=== PATIENT | male | born 1955 | race Caucasian/White ===

== ENCOUNTER 2022-03-26 01:22 | Outpatient (CLI) | payer MEDICARE, BC, SELFPAY ==
--- NOTE | 2022-03-26 09:30 | DI.DEXA_ITS ---
Exam(s) XR DEXA BONE DENSITY W/WO THA EXAM: XR DEXA BONE DENSITY W/WO THA CLINICAL HISTORY: PROSTATE CA ON ADT, Z79.818, C61; ? OSTEOPENIA TECHNIQUE: COMPARISON: No exams were available for comparison FINDINGS: Lateral Spine Image: Unremarkable. No compression deformities identified. Left hip: Total T-Score: -1.4 Total Z-Score: -2.2 T- and Z-scores: Findings consistent with osteopenia. Lumbar Spine: Total T-Score: -1.5 Total Z-Score: -0.7 T- and Z-scores: Findings consistent with osteopenia. IMPRESSION: Osteopenia in the lumbar spine and left hip.
== END 2022-03-26 01:42 ==
PROVIDERS: PCP Family Medicine; Visit Provider Radiology Radiation Oncology
DX: C61 Malignant neoplasm of prostate (principal); Z79.818 Long term (current) use of other agents affecting estrogen receptors and estrogen levels; M85.88 Other specified disorders of bone density and structure, other site
CPT/HCPCS: 77080

== ENCOUNTER 2024-08-06 02:27 | Outpatient (CLI) | payer MEDICARE, BC, SELFPAY ==
--- NOTE | 2024-08-06 | DI.DEXA_ITS ---
Exam(s) XR DEXA BONE DENSITY W/WO THA EXAM: XR DEXA BONE DENSITY W/WO THA CLINICAL HISTORY: CANCER OF PROSTATE, C61 ASYMPTOMATIC MENOPAUSAL STATE, Z78.0 TECHNIQUE: COMPARISON: CR XR DEXA BONE DENSITY W/WO THA from 03/26/2022 FINDINGS: Lateral Spine Image: Unremarkable. No compression deformities identified. Left hip: Total T-Score: -1.4. This compares to -1.4 on the prior examination. Total Z-Score: -0.8 T- and Z-scores: Findings are consistent with osteopenia. No evidence of osteoporosis. Lumbar Spine: Total T-Score: -1.2. This compares to -1.5 on the prior examination. Total Z-Score: -0.3 T- and Z-scores: The findings are consistent with osteopenia. There is no evidence of osteoporosis. Left forearm: Total T-score:-3.8. This compares to -3.3 on the prior examination. Total Z-score:-2.6 T and Z-score is: Findings are consistent with osteoporosis. IMPRESSION: There is again seen osteoporosis in the left forearm.
== END 2024-08-06 02:47 ==
LOC: DI 02:27
PROVIDERS: PCP Family Medicine; Visit Provider Colon & Rectal Surgery
DX: M81.0 Age-related osteoporosis without current pathological fracture (principal); Z13.820 Encounter for screening for osteoporosis; C61 Malignant neoplasm of prostate
CPT/HCPCS: 36415; 77080; 84153

== ENCOUNTER 2024-08-06 02:59 | Outpatient (CLI) | payer MEDICARE, BC, SELFPAY | END 2024-08-06 03:00 | disposition home or self-care (01) | LOC: LBO 02:59 | PROVIDERS: PCP Family Medicine; Visit Provider Colon & Rectal Surgery | DX: C61 Malignant neoplasm of prostate (principal) | CPT/HCPCS: 36415; 84153 ==